=== PATIENT | male | born 1985 | race Caucasian/White ===

== ENCOUNTER → 2018-01-02 | Outpatient (CLI) | payer BC ==
--- NOTE | 2018-01-02 18:23 | Diagnostic Imaging Report ---
Exam: Left wrist 3 views History: Pain and swelling Comparison: None. Findings: No fracture or malalignment. Joint spaces preserved. Soft tissue swelling. Impression: No acute osseous abnormality Signed by: Dr. Forrest Villa M.D. on 01/02/2018 6:20 PM
--- NOTE | 2018-01-03 08:33 | Diagnostic Imaging Report ---
Left Wrist MRI without contrast. History: Pain and swelling. Decreased range of motion. Comparison: Radiographs 01/02/2018 Technique: Multiplanar multisequence MRI of the wrist without contrast Findings: There is degeneration and fraying of the scapholunate ligament. There is degeneration and fraying of the lunotriquetral ligament. There is degeneration and fraying involving the ulnar styloid fibers of the triangular fibrocartilage complex. There is slight negative ulnar variance with a distal radial ulnar joint effusion and synovitis. 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 The findings are worrisome for avascular process of the lunate bone. No osteochondral lesion. No cortical fracture. Scattered degenerative changes are seen about the carpal bones. The extensor tendons are intact. The flexor tendons are intact. Single intensity within the median nerve is normal. No ganglion cyst. There is normal alignment of the wrist. There is dorsal capsular scarring and synovitis with soft tissue edema about the wrist most pronounced dorsally. 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 The findings are worrisome for avascular process of the lunate bone. Slight negative ulnar variance with distal radial ulnar joint effusion and synovitis. Dorsal capsular scarring and synovitis with soft tissue edema about the wrist most pronounced dorsally. Signed by: Dr. Walter Zavaleta M.D. on 01/03/2018 8:29 AM
== END ==
LOC: MRI 16:57
PROVIDERS: ATTEND Plastic Surgery
DX: M25.532 Pain in left wrist (principal); M25.432 Effusion, left wrist